=== PATIENT | female | born 1960 | race Caucasian/White ===

== ENCOUNTER 2016-09-26 01:24 | Inpatient (IN) | payer OTHER ==
[2016-09-26] VITALS (25 sets, daily range): BP systolic 68–117; BP diastolic 41–75
[~2016-09-26] VITALS: Ht 154.9 cm; Wt 52.2 kg
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
--- NOTE | ~2016-09-26 | HC ---
[facility] [place] [address] CONSULTATION Name: TRINITY CABALLERO Room #: 430-P ADM IN M.R.#: [id number] Admission: 09/26/16 Attend Phys: Giuseppe Waldron MD Discharge: Date of : 64 Report #: [id number] THIS REPORT FOR: //name// CC: Giuseppe Aaron DATE OF SERVICE: 09/26/2016 ATTENDING PHYSICIAN: Dr. Pittman. REASON FOR CONSULTATION: Recurrent hypokalemia. HISTORY OF PRESENT ILLNESS: The patient is extremely well known to our service, has had multiple recurrent hospitalizations to multiple hospitals for recurrent electrolyte abnormalities. She has multiple abnormalities including eating disorder with probable bulimia, surreptitious diuretic usage, diuretic abuse, frequent nausea and vomiting, and psychiatric disorder. She was admitted 3 weeks ago at [facility] with similar problems, now admitted again here with similar problems including severe hypokalemia. She has chronic kidney disease, thought due to the recurrent and severe hypokalemia and has again had multiple admissions. PAST MEDICAL HISTORY: She has also had a previous cholecystectomy; chronic borderline hypotension, on midodrine. HOME MEDICATIONS: As listed include diazepam 5 mg daily, Lomotil, estradiol 1 mg daily, Prozac 10 mg daily, Linzess 145 mcg daily, melatonin 3 mg daily, midodrine 5 mg t.i.d., Protonix 40 mg daily, potassium 20 mEq t.i.d., trazodone 50 mg daily and vitamin D. FAMILY HISTORY: Please see old charts. REVIEW OF SYSTEMS: GENERAL: She feels poorly. EYES: Her vision is okay. ENT: Hearing okay, swallows okay. No mouth sores or ulcers. ENDOCRINE: No diabetes. She has had some history of thyroid disease, was on thyroid replacement one time apparently, has not been on that recently. RESPIRATORY: No shortness of breath. CARDIAC: She has had no arrhythmias despite the severe electrolyte abnormalities, no coronary artery disease or chest pain. GASTROINTESTINAL: She has had the frequent episodes of nausea, vomiting, diarrhea, probable bulimia as well. GENITOURINARY: Reasonably good urinary stream. NEUROLOGIC: No seizure, syncope or stroke. She is weak. PSYCHIATRIC: She has very complex psychiatric disorder. There may be some [facility] [address] [place] [address] CONSULTATION Name: TRINITY CABALLERO Room #: 430-P [facility] IN .R.#: [id number] Admission: 09/26/16 Attend Phys: Giuseppe Waldron MD Discharge: Date of : 64 Report #: [id number] opiate addiction as well, which has also circumvented. PHYSICAL EXAMINATION: GENERAL: This is a chronically ill-appearing patient. SKIN: Poor turgor. SKELETAL: Extremely thin and cachectic. HEENT: Extraocular movements are full. Vision intact. Her dentition is poor and suggestive of her bulimic condition. NECK: Supple. CHEST: Clear. HEART: Regular. ABDOMEN: Mildly tender. EXTREMITIES: No edema. NEUROLOGIC: Grossly intact. LABORATORY DATA: The hemoglobin is 12.4. Sodium 129, potassium 1.4, chloride 86, bicarbonate 23, creatinine 2.1, BUN 42. ASSESSMENT AND PLAN: 1. Chronic kidney disease. This is hypokalemic nephropathy. She has had recurrent multiple bouts of hypokalemia which are multifactorial. 2. Hypokalemia. She has an eating disorder, suspected bulimia, frequent nausea, vomiting, frequent diarrhea. She has a history of documented diuretic abuse, surreptitious diuretic usage, laxative abuse and usage, all contributing to her chronic electrolyte problems. 3. Hypothyroidism, this will need replacement. 4. Severe psychiatric disorder. <ELECTRONICALLY SIGNED> By: Alex Keenan MD 09/30/16 1012 [id number] Rojas Lagos MD /nt
--- NOTE | ~2016-09-26 | EKG ---
[address] [place] [address] ELECTROCARDIOGRAM REPORT Name: TRINITY CABALLERO Room #: 236-P ADM IN M.R.#: [id number] Admission: 09/26/16 Attend Phys: Giuseppe Waldron MD Discharge: Date of : 64 Report #: [id number] THIS REPORT FOR: //name// [facility] ED Test Date: 2016-09-26 Test Time: 01:43:11 Pat Name: TRINITY CABALLERO Department: Room: 236 Gender: F Rib Trim Separator: abdifatah : 1960 Requested By: Yaneli Watson Order Number: [id number] MD: Miguel Hernandez Measurements Intervals [place] Rate: 92 P: 239 DE: 201 QRS: 2 QRSD: 93 T: 88 QT: 424 QTc: 525 Interpretive Statements Sinus rhythm Borderline prolonged DE interval Repol abnrm suggests ischemia, anterolateral Prolonged QT interval Compared to ECG 04/06/2016 10:55:19 Ectopic atrial rhythm now present Early repolarization now present Possible ischemia now present Prolonged QT interval now present Sinus rhythm no longer present Electronically Signed On 09-26-2016 20:42:21 CDT by Miguel Hernandez [email or web address] <ELECTRONICALLY SIGNED> By: Miguel Hernandez MD 09/26/16 2042 2 014 Miguel Hernandez MD /EPI
[~2016-09-26 01:24] MED LIST: ACETAMINOP160 MG/12 PO; AMBIEN 5 MG TABL5 M1 PO; CEFTIN500 MG PO; COLACE100 MG PO; CYCLOBENZAPRINE5 MG PO; ESTRADIOL 1 MG T1 M1 PO; FLEXERIL PO; HYDROCODONE-APA1 TA1 PO; K-DUR 20 MEQ T20 MEQ PO; KLOR-CON 1010 MEQ PO; LEVOTHYROXIN0.025 MG PO; MAGOX 400400 MG; MAGOX 400400 MG PO; MIDAMOR 5MG TABL5 M1 PO; MIDODRINE HCL 55 M1 PO; MIRALAX17 GM PO; MOVANTIK25 MG PO; NORCO 10-325 T1 EAC1 PO; NORCO 5-325 TA1 EACH PO; ONDANSETRON HCL4 M2 PO; PERCOCET 10-321 EACH PO; POTASSIUM20 PO; PROZAC20 MG PO; REMERON15 MG PO; SENOKOT-S1 TA1 PO; SEROQUEL 25 MG25 M1 PO; SERTRALINE HCL25 M1 PO; SERTRALINE HCL50 MG PO; TRAMADOL 50 MG50 MG PO; TRAZODONE HCL100 MG PO; TYLENOL325 MG PO; VALIUM5 MG PO; VICODIN 5-3001 EACH PO; VITAMIN D 5050000 I1 PO; VITAMIN D1000 UNI1 PO
[2016-09-26 01:44] LABS: ABSOLUTE NEUTROPHILS 14.6 thou/uL (1.4-8.2); BASOPHILS 1.2 % (0.0-2.0); EOSINOPHILS 0.6 % (0.0-3.0); HEMATOCRIT 36.4 % (37.0-47.0); HEMOGLOBIN 12.4 gm/dL (12.0-15.0); LYMPHOCYTES 12.1 % (24.0-44.0); MCH 26.7 pg (26.0-34.0); MCV 78.5 fL (80.0-100.0); MONOCYTES 6.7 % (1.0-8.0); PLATELET COUNT 639 thou/uL (150-400); POLYS 79.4 % (36.0-66.0); RBC 4.63 mil/uL (4.20-5.00); RDW 19.7 % (10.5-14.5); WBC 18.4 thou/uL (4.0-11.0)
[2016-09-26 01:59] LABS: ANION GAP 20 mmol/L (7-16); BUN 42 mg/dL (7-18); CALCIUM 9.5 mg/dL (8.5-10.1); CHLORIDE 86 mmol/L (98-107); CO2 23 mmol/L (21-32); CREATININE 2.1 mg/dL (0.6-1.0); GLUCOSE 139 mg/dL (74-106); SODIUM 129 mmol/L (136-145); TROPONIN-I < 0.04 ng/mL (<0.04-0.07)
[2016-09-26 02:18] LABS: MANUAL DIFF NO; POTASSIUM 1.4 mmol/L (3.5-5.1)
[2016-09-26 02:36] LABS: URINE BILIRUBIN NEGATIVE (Negative); URINE BLOOD 1+ (Negative); URINE GLUCOSE-RANDOM* NEGATIVE (Negative); URINE KETONES NEGATIVE (Negative); URINE NITRITE NEGATIVE (Negative); URINE PROTEIN (DIPSTICK) 1+ (Negative); URINE UROBILINOGEN 0.2 E.U./dl (0.2-1.0)
[2016-09-26 02:47] LABS: URINE COLOR COLORLESS
[2016-09-26 02:56] LABS: CASTS None Seen /LPF (None Seen); CRYSTALS None Seen /LPF (None Seen); SQUAMOUS 4-10 Moderate /LPF (0-3); URINE RBC 3-10 Few /HPF (0-2); URINE WBC 0-5 Rare /HPF (0-5)
[2016-09-26 02:57] LABS: BACTERIA 1-9 Few /HPF (None Seen)
[2016-09-26] MEDS ORDERED: VALIUM5 MG PO (05:32)
[2016-09-26] MEDS ORDERED: TRAZODONE HCL50 MG PO (05:33)
[2016-09-26] MEDS ORDERED: PROTONIX40 M1 PO (05:34)
[2016-09-26] MEDS ORDERED: VITAMIN D250000 UNIT PO (05:35)
[2016-09-26] MEDS ORDERED: MIDODRINE HCL 55 M1 PO (05:36)
[2016-09-26] MEDS ORDERED: OXYCODONE HCL15 MG PO (05:36)
[2016-09-26] MEDS ORDERED: MELATONIN3 MG PO (05:37)
[2016-09-26] MEDS ORDERED: PROZAC10 M1 PO (05:38)
[2016-09-26] MEDS ORDERED: LINZESS145 MCG PO (05:38)
[2016-09-26] MEDS ORDERED: IRON325 PO (05:39)
[2016-09-26] MEDS ORDERED: LOMOTIL TABLET1 EACH PO (05:43)
[2016-09-26 11:47] LABS: CALCIUM 8.4 mg/dL (8.5-10.1); CREATININE 1.8 mg/dL (0.6-1.0)
[2016-09-26 11:53] LABS: POTASSIUM 2.2 mmol/L (3.5-5.1)
[2016-09-26 16:39] LABS: ALBUMIN 3.2 g/dL (3.4-5.0); CALCIUM 8.3 mg/dL (8.5-10.1); PHOSPHORUS 4.4 mg/dL (2.5-4.9)
[2016-09-26 16:42] LABS: POTASSIUM 2.1 mmol/L (3.5-5.1)
[2016-09-27] VITALS (21 sets, daily range): BP systolic 66–108; BP diastolic 39–75
[2016-09-27 07:57] LABS: HEMATOCRIT 26.1 % (37.0-47.0); MCHC 32.7 g/dL (28.0-37.0); MCV 82.5 fL (80.0-100.0); RBC 3.16 mil/uL (4.20-5.00); RDW 20.4 % (10.5-14.5); WBC 6.5 thou/uL (4.0-11.0)
[2016-09-27 08:01] LABS: HEMOGLOBIN 8.5 gm/dL (12.0-15.0)
[2016-09-27 08:10] LABS: ALBUMIN 2.7 g/dL (3.4-5.0); CALCIUM 8.2 mg/dL (8.5-10.1); CREATININE 1.7 mg/dL (0.6-1.0); PHOSPHORUS 3.3 mg/dL (2.5-4.9); POTASSIUM 3.5 mmol/L (3.5-5.1)
[2016-09-28 04:30] VITALS: BP 74/39
[2016-09-28 06:10] LABS: ALBUMIN 2.6 g/dL (3.4-5.0); CALCIUM 7.9 mg/dL (8.5-10.1); CREATININE 1.5 mg/dL (0.6-1.0); MAGNESIUM 2.1 mg/dL (1.8-2.4); POTASSIUM 3.8 mmol/L (3.5-5.1)
[2016-09-28 07:53] VITALS: BP 72/35
[2016-09-28 15:11] VITALS: BP 91/50
[2016-09-28 20:00] VITALS: BP 90/46
[2016-09-29 04:00] VITALS: BP 73/42
[2016-09-29 05:07] LABS: ALBUMIN 2.5 g/dL (3.4-5.0); CALCIUM 7.9 mg/dL (8.5-10.1); CREATININE 1.4 mg/dL (0.6-1.0); PHOSPHORUS 2.7 mg/dL (2.5-4.9); POTASSIUM 4.1 mmol/L (3.5-5.1)
[2016-09-29 07:14] VITALS: BP 86/48
[2016-09-29 12:30] VITALS: BP 82/30
[2016-09-29 15:29] VITALS: BP 97/43
[2016-09-29 16:42] VITALS: BP 103/37
[2016-09-29 20:00] VITALS: BP 101/46
[2016-09-30 04:00] VITALS: BP 99/53
[2016-09-30 08:35] VITALS: BP 108/48
[2016-09-30 09:00] VITALS: BP 108/48
[2016-09-30 15:45] VITALS: BP 95/46
[2016-09-30 20:00] VITALS: BP 121/60
[2016-10-01 04:58] LABS: ALBUMIN 2.5 g/dL (3.4-5.0); CALCIUM 8.2 mg/dL (8.5-10.1); CREATININE 1.2 mg/dL (0.6-1.0); MAGNESIUM 1.9 mg/dL (1.8-2.4); PHOSPHORUS 2.2 mg/dL (2.5-4.9); POTASSIUM 4.3 mmol/L (3.5-5.1)
[2016-10-01 05:06] VITALS: BP 112/57
[2016-10-01 07:34] VITALS: BP 95/56
[2016-10-01] MEDS ORDERED: MIDAMOR 5MG TABL5 M1 PO (10:01)
[2016-10-01] MEDS ORDERED: PERCOCET 10-321 EACH PO (10:36)
[2016-10-01 10:58] VITALS: BP 95/56
== END 2016-10-01 16:00 | disposition home or self-care (01) | DRG 682 ==
LOC: ER 01:24 → 4E 02:44 → EROBS 02:44 → 3N 02:44 → ICU 11:04 → 4E 09-27 10:19
PROVIDERS: Emergency Medicine; Internal Medicine; Internal Medicine Nephrology; Nurse Practitioner Acute Care
DX: N17.0 Acute kidney failure with tubular necrosis (principal); E43 Unspecified severe protein-calorie malnutrition; F50.2 Bulimia nervosa; E87.1 Hypo-osmolality and hyponatremia; E87.6 Hypokalemia; N18.6 End stage renal disease; G89.29 Other chronic pain; D72.829 Elevated white blood cell count, unspecified; F29 Unspecified psychosis not due to a substance or known physiological condition; E03.9 Hypothyroidism, unspecified; I95.89 Other hypotension; F50.81 Binge eating disorder; Z68.21 Body mass index [BMI] 21.0-21.9, adult; Z87.81 Personal history of (healed) traumatic fracture; Z90.710 Acquired absence of both cervix and uterus; Z90.49 Acquired absence of other specified parts of digestive tract
CPT/HCPCS: 10078; 10183

== ENCOUNTER 2016-10-08 22:25 | Inpatient (IN) | payer OTHER ==
[~2016-10-08] VITALS: Ht 152.4 cm; Wt 50.8 kg
--- NOTE | ~2016-10-08 | EKG ---
[place] [address] [facility] [place] [address] ELECTROCARDIOGRAM REPORT Name: CABALLEROTRINITY Chico Room #: 464-P ADM IN M.R.#: [id number] Admission: 10/09/16 Attend Phys: Sanjeev Pittman Discharge: Date of : 64 Report #: [id number] THIS REPORT FOR: //name// [facility] ED Test Date: 2016-10-08 Test Time: 22:34:35 Pat Name: TRINITY CABALLERO Department: Room: 464 Gender: F College Dean: [id number] : 1960 Requested By: Brooke Alfonso Order Number: [id number] MD: Zohaib Delatorre Measurements Intervals [place] Rate: 75 P: 0 TN: 128 QRS: 33 QRSD: 86 T: 268 QT: 460 QTc: 514 Interpretive Statements Sinus rhythm Multiple ventricular premature complexes LAE, consider biatrial enlargement Nonspecific repol abnormality, diffuse leads Prolonged QT interval Compared to ECG 09/26/2016 01:43:11 Ventricular premature complex(es) now present Electronically Signed On 10-09-2016 8:40:02 CDT by Zohaib Delatorre [email or web address] <ELECTRONICALLY SIGNED> By: Zohaib Delatorre MD, [facility] 10/09/16 0840 2234 2234 Zohaib Delatorre MD, [facility] /EPI
--- NOTE | ~2016-10-08 | HC ---
[facility] [place] [address] CONSULTATION Name: TRINITY CABALLERO Room #: 464-P [facility] IN M.R.#: [id number] Admission: 10/09/16 Attend Phys: Sanjeev Pittman Discharge: 10/12/16 Date of : 64 Report #: [id number] THIS REPORT FOR: //name// CC: Sanjeev Aaron DATE OF SERVICE: 10/09/2016 REASON FOR CONSULTATION: Recurrent hypokalemia in this known diuretic/laxative abusing female. HISTORY OF PRESENT ILLNESS: The patient is well known to us. [facility]. She has been found on diuretics screen to have the presence of thiazide diuretics in her system on multiple occasions when she denied ingestion of these substances. She responds slowly, but readily to appropriate supplementation and rehydration. On several occasions, she has acknowledged misuse of both diuretics and laxatives, though she customarily denies their use when laboratory resting reveals otherwise. She has undergone repeated psychiatric evaluation for her eating/image disorder. The patient was admitted on this occasion with profound hypokalemia of 1.4. She has received initial supplementation, remains low and renal consultation is requested. The patient once again denies the use of any diuretics or laxatives at this time, though she did acknowledge them at the time of her most recent hospitalization in early September of this year. PAST MEDICAL HISTORY: Remarkable for psychiatric difficulties as described above. She has undergone previous cholecystectomy. MEDICATIONS: On admission include diazepam, estradiol, Prozac, Linzess, melatonin, midodrine, Protonix, potassium, trazodone, and amiloride. FAMILY HISTORY: Negative for renal disease. REVIEW OF SYSTEMS: Remarkable for weakness and lethargy. She denies fevers, chills, sweats or other constitutional complaints. She denies shortness of breath, productive cough, hemoptysis, chest pain, palpitations, nausea, vomiting, diarrhea, or constipation. PHYSICAL EXAMINATION: GENERAL: Reveals a chronically ill, debilitated woman, in no acute distress. VITAL SIGNS: Blood pressure 89/56, pulse 61, and temperature 97.5. SKIN: Warm and dry. There is diminished turgor noted. Mucous membranes are dry. HEENT: The head is normocephalic and atraumatic. The teeth are in poor repair [address] [address] CONSULTATION Name: ADATRINITY K Room #: 464-P [facility] IN ..#: [id number] Admission: 10/09/16 Attend Phys: Sanjeev Pittman Discharge: 10/12/16 Date of : 64 Report #: [id number] with the appearance of a bulimic patient. NECK: Supple. LUNGS: Perkins are grossly clear. CARDIAC: Reveals a regular rate and rhythm without rub. ABDOMEN: Soft and nontender, without palpable mass or organomegaly. NEUROLOGIC: Reveals the patient to be alert and cooperative with a nonfocal exam. LABORATORY STUDIES: Available at the time of consultation include sodium 138, potassium 2.2, chloride 101, CO2 of27, BUN 35, creatinine 1.6, and glucose 80. ASSESSMENT: 1. Profound hypokalemia in this diuretic abusing female. once again undergoing oral and intravenous supplementation as appropriate. 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 2. Dehydration. 3. Hypomagnesemia. 4. Psychiatric disorder. I believe in the strongest possible terms the patient is a candidate for inpatient psychiatric evaluation and treatment. She has repeated life threatening self- destructive behavioral disorder that needs intervention in the strongest possible terms. She has repeatedly failed to keep outpatient renal or psychiatric appointments. She cannot be trusted to provide good medical followup for herself. Please see orders. <ELECTRONICALLY SIGNED> By: Alex Keenan MD 10/14/16 0641 [id number] 1654 Alex Keenan MD /nt
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
[~2016-10-08 22:25] MED LIST changes: +IRON325 PO; +LINZESS145 MCG PO; +LOMOTIL TABLET1 EACH PO; +MELATONIN3 MG PO; +OXYCODONE HCL15 MG PO; +PROTONIX40 M1 PO; +PROZAC10 M1 PO; +TRAZODONE HCL50 MG PO; +VITAMIN D250000 UNIT PO
[2016-10-09] VITALS (9 sets, daily range): BP systolic 70–119; BP diastolic 38–72
[2016-10-09 01:11] LABS: ABSOLUTE NEUTROPHILS 5.1 thou/uL (1.4-8.2); BASOPHILS 0.3 % (0.0-2.0); EOSINOPHILS 1.8 % (0.0-3.0); HEMATOCRIT 37.2 % (37.0-47.0); HEMOGLOBIN 12.4 gm/dL (12.0-15.0); LYMPHOCYTES 27.2 % (24.0-44.0); MCH 27.2 pg (26.0-34.0); MCHC 33.2 g/dL (28.0-37.0); PLATELET COUNT 556 thou/uL (150-400); POLYS 58.7 % (36.0-66.0); RBC 4.53 mil/uL (4.20-5.00); RDW 22.2 % (10.5-14.5); WBC 8.7 thou/uL (4.0-11.0)
[2016-10-09 01:13] LABS: MANUAL DIFF NO
[2016-10-09 01:56] LABS: CALCIUM 9.9 mg/dL (8.5-10.1); MAGNESIUM 3.2 mg/dL (1.8-2.4)
[2016-10-09 01:57] LABS: POTASSIUM 1.4 mmol/L (3.5-5.1)
[2016-10-09 07:39] LABS: CALCIUM 9.1 mg/dL (8.5-10.1); CREATININE 1.8 mg/dL (0.6-1.0)
[2016-10-09 07:41] LABS: POTASSIUM 1.7 mmol/L (3.5-5.1)
[2016-10-10 00:10] VITALS: BP 97/52
[2016-10-10 01:42] VITALS: BP 101/44
[2016-10-10 04:00] VITALS: BP 86/53
[2016-10-10 06:40] LABS: ALBUMIN 3.1 g/dL (3.4-5.0); CALCIUM 8.2 mg/dL (8.5-10.1); CREATININE 1.6 mg/dL (0.6-1.0); MAGNESIUM 2.9 mg/dL (1.8-2.4); PHOSPHORUS 3.4 mg/dL (2.5-4.9)
[2016-10-10 06:48] LABS: POTASSIUM 2.2 mmol/L (3.5-5.1)
[2016-10-10 10:02] VITALS: BP 89/56
[2016-10-10 12:20] LABS: URINE POTASSIUM-RANDOM* 63.5 mmol/L
[2016-10-10 12:54] VITALS: BP 72/47
[2016-10-10 15:38] LABS: CREATININE 1.5 mg/dL (0.6-1.0)
[2016-10-10 15:40] LABS: POTASSIUM 2.7 mmol/L (3.5-5.1)
[2016-10-10 20:16] VITALS: BP 115/66
[2016-10-11] VITALS (7 sets, daily range): BP systolic 75–108; BP diastolic 38–62
[2016-10-11 04:50] LABS: CALCIUM 8.2 mg/dL (8.5-10.1); CREATININE 1.6 mg/dL (0.6-1.0); MAGNESIUM 2.1 mg/dL (1.8-2.4); PHOSPHORUS 2.2 mg/dL (2.5-4.9); POTASSIUM 3.2 mmol/L (3.5-5.1)
[2016-10-12 03:19] VITALS: BP 107/65
[2016-10-12 04:09] LABS: ALBUMIN 2.6 g/dL (3.4-5.0); CREATININE 1.2 mg/dL (0.6-1.0); MAGNESIUM 1.9 mg/dL (1.8-2.4); PHOSPHORUS 1.8 mg/dL (2.5-4.9); POTASSIUM 3.5 mmol/L (3.5-5.1)
[2016-10-12 07:39] VITALS: BP 94/53
[2016-10-12 11:06] VITALS: BP 94/41
[2016-10-12] MEDS ORDERED: K-DUR 20 MEQ T20 MEQ PO (11:12)
[2016-10-12 11:16] VITALS: BP 94/41
== END 2016-10-12 12:08 | disposition home or self-care (01) | DRG 683 ==
LOC: ER 22:25 → EROBS 10-09 02:36 → 4W 10-09 02:36
PROVIDERS: Emergency Medicine; Hospitalist; Internal Medicine Nephrology; Nurse Practitioner Acute Care
DX: N17.9 Acute kidney failure, unspecified (principal); F50.2 Bulimia nervosa; E87.6 Hypokalemia; E86.0 Dehydration; E87.8 Other disorders of electrolyte and fluid balance, not elsewhere classified; F55.2 Abuse of laxatives; E83.42 Hypomagnesemia; F99 Mental disorder, not otherwise specified; N18.6 End stage renal disease; F32.9 Major depressive disorder, single episode, unspecified; I25.10 Atherosclerotic heart disease of native coronary artery without angina pectoris; F19.10 Other psychoactive substance abuse, uncomplicated; N18.9 Chronic kidney disease, unspecified; Z90.49 Acquired absence of other specified parts of digestive tract; Z90.710 Acquired absence of both cervix and uterus; Z87.81 Personal history of (healed) traumatic fracture; Z79.899 Other long term (current) drug therapy; Z80.0 Family history of malignant neoplasm of digestive organs
CPT/HCPCS: 10045

== ENCOUNTER 2016-10-20 15:59 | Inpatient (IN) | payer OTHER ==
[~2016-10-20] VITALS: Ht 154.9 cm; Wt 52.5 kg
--- NOTE | ~2016-10-20 | HC ---
[facility] [place] [address] [place] [address] CONSULTATION Name: TRINITY CABALLERO Room #: 463-P [facility] IN M.R.#: [id number] Admission: 10/20/16 Attend Phys: Jim Godwin MD Discharge: Date of : 64 Report #: [id number] THIS REPORT FOR: //name// CC: Jim Aaron DATE OF SERVICE: 10/21/2016 DATE OF ADMISSION: 10/20/2016 DATE OF CONSULTATION: 10/21/2016 REASON FOR CONSULTATION: Recurrent hypokalemia in this patient with known eating disorder. 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 She also has a significant eating disorder with bulimia. She is receiving ongoing counseling in this regard, but continues to have repeated hospitalizations. She was last discharged from [facility] just 2 weeks ago. Her discharge labs were remarkable for a potassium of 3.5 and creatinine of 1.2 on last determination on 10/12. She presents to the hospital with complaints of nausea and vomiting over the past several days. Her potassium was 1.0 on admission and her serum creatinine was elevated at 2.5. She steadfastly denies any use of diuretics. PAST MEDICAL HISTORY: Remarkable as described above. She has chronic pain syndrome. She has a history of hypertension. She has had previous episodes of pancreatitis. ALLERGIES: She has no known drug allergies. MEDICATIONS: On admission to the hospital reported to include Estrace 1 mg daily, potassium 60 mEq p.o. t.i.d., Zofran 4 mg every 8 hours p.r.n., amiloride 10 mg b.i.d., Percocet 10/325 q. 4 hours p.r.n., melatonin p.r.n. PAST SURGICAL HISTORY: Remarkable for x 2, hysterectomy, cholecystectomy, breast reduction, foot surgery. FAMILY HISTORY: Negative for renal disease. REVIEW OF SYSTEMS: Remarkable as described in the history of present illness. She denies fevers, chills, sweats. She denies diarrhea. PHYSICAL EXAMINATION: GENERAL: Reveals a chronically ill, debilitated, wasted female appearing her [address] [address] CONSULTATION Name: TRINITY CABALLERO Room #: 463-P [facility] IN .R.#: [id number] Admission: 10/20/16 Attend Phys: Jim Godwin MD Discharge: Date of : 64 Report #: [id number] stated age, in no acute distress. VITAL SIGNS: Blood pressure 93/57, temperature 97.6, pulse of 81 and respirations 18. SKIN: Warm and dry. There is no gross clubbing, cyanosis, edema or adenopathy. HEENT: The head is normocephalic and atraumatic. The teeth are in poor repair and have the typical appearance of an eating disorder patient. NECK: Supple. LUNGS: Perkins are clear. CARDIAC: Reveals a regular rate and rhythm without rub. ABDOMEN: Soft and nontender, without palpable mass or organomegaly. NEUROLOGIC: Reveals the patient to be alert and cooperative with a nonfocal exam. DIAGNOSTIC DATA: Available at this time include sodium 128, potassium 2.2, chloride 89, CO2 25, BUN 33, creatinine 2.5, glucose 153. White blood cell count 12,000, hemoglobin 11.1, hematocrit 32.9, platelet count 461,000. Urinalysis reveals clear yellow urine, 1+ protein, 2+ blood. ASSESSMENT AND PLAN: 1. Life threatening recurrent hypokalemia in this patient with known eating disorder/diuretic and laxative abuse. She attributes the current situation to nausea and vomiting with diarrhea, but I doubt this. She adamantly denies ingestion of diuretics. We will once again obtain a urine diuretic screen as we have done on several occasions in the past when she has denied the use and may have been in fact positive. Diuretic abuse is the likely explanation for this problems once again. She needs inpatient psychiatric consultation with aggressive followup management. She is clearly demonstrated repeatedly that she is failing outpatient management. 2. Recurrent hyperkalemic insults and chronic kidney disease. 3. Eating disorder as described. PLAN: She is undergoing vigorous potassium replacement with serial potassium determinations. I estimate her total body potassium deficit in the multi 100 mEq range. Please see orders. <ELECTRONICALLY SIGNED> By: Alex Keenan MD 10/22/16 0617 0908 1046 Alex Keenan MD /nt
--- NOTE | ~2016-10-20 | EKG ---
[address] [place] [address] ELECTROCARDIOGRAM REPORT Name: ADATRINITY Chico Room #: 463-P ADM IN .R.#: [id number] Admission: 10/20/16 Attend Phys: Jim Godwin MD Discharge: Date of : 64 Report #: [id number] THIS REPORT FOR: //name// [facility] ED Test Date: 2016-10-20 Test Time: 16:16:12 Pat Name: TRINITY CABALLERO Department: Room: 463 Gender: F Assistant Teacher Primary: SHIRA : 1960 Requested By: Damon Encinas Order Number: [id number] MD: Zohaib Delatorre Measurements Intervals [place] Rate: 97 P: 3 CA: 56 QRS: 15 QRSD: 96 T: 71 QT: 529 QTc: 672 Interpretive Statements Sinus rhythm Left atrial enlargement Diffuse ST and T wave abnormality Prolonged QT interval Compared to ECG 10/08/2016 22:34:35 ST and T wave abnormality is more pronounced Premature ventricular complexes no longer present Electronically Signed On 10-22-2016 7:47:36 CDT by Zohaib Delatorre [email or web address] <ELECTRONICALLY SIGNED> By: Zohaib Delatorre MD, [facility] 10/22/16 0747 1616 1616 Zohaib Delatorre MD, [facility] /EPI
[2016-10-20 16:08] VITALS: BP 118/73
[2016-10-20 16:46] LABS: ABSOLUTE NEUTROPHILS 15.2 thou/uL (1.4-8.2); BASOPHILS 0.8 % (0.0-2.0); EOSINOPHILS 0.5 % (0.0-3.0); HEMATOCRIT 40.2 % (37.0-47.0); HEMOGLOBIN 13.7 gm/dL (12.0-15.0); LYMPHOCYTES 10.2 % (24.0-44.0); MANUAL DIFF NO; MCH 26.7 pg (26.0-34.0); MCHC 34.1 g/dL (28.0-37.0); MCV 78.4 fL (80.0-100.0); MONOCYTES 8.2 % (1.0-8.0); PLATELET COUNT 633 thou/uL (150-400); POLYS 80.3 % (36.0-66.0); RBC 5.14 mil/uL (4.20-5.00); RDW 20.8 % (10.5-14.5); WBC 18.9 thou/uL (4.0-11.0)
[2016-10-20 17:01] LABS: ALBUMIN 4.7 g/dL (3.4-5.0); ALKALINE PHOSPHATASE 183 U/L (46-116); ANION GAP 12 mmol/L (7-16); BUN 36 mg/dL (7-18); CALCIUM 8.7 mg/dL (8.5-10.1); CHLORIDE 80 mmol/L (98-107); CO2 30 mmol/L (21-32); CREATININE 2.4 mg/dL (0.6-1.0); DIRECT BILIRUBIN 0.1 mg/dL (<0.1-0.3); GLUCOSE 148 mg/dL (74-106); MAGNESIUM 2.6 mg/dL (1.8-2.4); SGOT 42 U/L (15-37); SGPT 38 U/L (30-65); SODIUM 122 mmol/L (136-145); TOTAL BILIRUBIN 0.5 mg/dL (<0.1-1.0); TOTAL PROTEIN 9.2 g/dL (6.4-8.2); TROPONIN-I < 0.04 ng/mL (<0.04-0.07)
[2016-10-20 17:27] LABS: URINE BILIRUBIN NEGATIVE (Negative); URINE BLOOD 2+ (Negative); URINE COLOR YELLOW; URINE GLUCOSE-RANDOM* NEGATIVE (Negative); URINE KETONES NEGATIVE (Negative); URINE LEUKOCYTES-REFLEX NEGATIVE (Negative); URINE PROTEIN (DIPSTICK) 1+ (Negative); URINE UROBILINOGEN 0.2 E.U./dl (0.2-1.0)
[2016-10-20 17:33] LABS: CASTS None Seen /LPF (None Seen); CRYSTALS None Seen /LPF (None Seen); SQUAMOUS 0-3 Few /LPF (0-3); URINE RBC 0-2 Rare /HPF (0-2); URINE WBC-REFLEX 0-5 Rare /HPF (0-5)
[2016-10-20 18:33] VITALS: BP 109/72
[2016-10-20 19:48] VITALS: BP 104/64
[2016-10-21] VITALS (7 sets, daily range): BP systolic 73–96; BP diastolic 42–65
[2016-10-21 05:13] LABS: HEMATOCRIT 32.9 % (37.0-47.0); MCH 26.9 pg (26.0-34.0); MCHC 33.8 g/dL (28.0-37.0); MCV 79.8 fL (80.0-100.0); RBC 4.13 mil/uL (4.20-5.00); RDW 20.7 % (10.5-14.5)
[2016-10-21 05:16] LABS: HEMOGLOBIN 11.1 gm/dL (12.0-15.0)
[2016-10-21 05:25] LABS: CALCIUM 7.7 mg/dL (8.5-10.1); CREATININE 2.5 mg/dL (0.6-1.0)
[2016-10-21 05:38] LABS: POTASSIUM 2.2 mmol/L (3.5-5.1)
[2016-10-21 18:12] LABS: CALCIUM 7.8 mg/dL (8.5-10.1); CREATININE 1.9 mg/dL (0.6-1.0)
[2016-10-21 18:17] LABS: POTASSIUM 2.6 mmol/L (3.5-5.1)
[2016-10-22 03:02] VITALS: BP 80/52
[2016-10-22 04:32] LABS: ALBUMIN 2.8 g/dL (3.4-5.0); CALCIUM 7.5 mg/dL (8.5-10.1); CREATININE 1.7 mg/dL (0.6-1.0)
[2016-10-22 04:34] LABS: POTASSIUM 3.9 mmol/L (3.5-5.1)
[2016-10-22 07:47] VITALS: BP 83/52
[2016-10-22 09:58] VITALS: BP 83/52
[2016-10-22 11:03] VITALS: BP 83/52
[2016-10-22 11:04] VITALS: BP 92/54
== END 2016-10-22 15:31 | disposition home or self-care (01) | DRG 896 ==
LOC: ER 15:59 → 4W 17:47 → EROBS 17:47 → 4W 18:23
PROVIDERS: Hospitalist; Internal Medicine Nephrology; Physician Assistant
DX: F55.2 Abuse of laxatives (principal); N17.0 Acute kidney failure with tubular necrosis; E43 Unspecified severe protein-calorie malnutrition; E87.1 Hypo-osmolality and hyponatremia; E87.6 Hypokalemia; I12.9 Hypertensive chronic kidney disease with stage 1 through stage 4 chronic kidney disease, or unspecified chronic kidney disease; N18.9 Chronic kidney disease, unspecified; R10.9 Unspecified abdominal pain; E87.8 Other disorders of electrolyte and fluid balance, not elsewhere classified; D72.829 Elevated white blood cell count, unspecified; G89.4 Chronic pain syndrome; F50.9 Eating disorder, unspecified; I95.9 Hypotension, unspecified; Z90.49 Acquired absence of other specified parts of digestive tract; Z68.21 Body mass index [BMI] 21.0-21.9, adult; Z90.710 Acquired absence of both cervix and uterus
CPT/HCPCS: 10045

== ENCOUNTER 2016-11-05 16:05 | Inpatient (IN) | payer OTHER ==
[2016-11-05] VITALS (20 sets, daily range): BP systolic 79–109; BP diastolic 55–78
[~2016-11-05] VITALS: Ht 154.9 cm; Wt 54.0 kg
--- NOTE | ~2016-11-05 | EKG ---
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: PERLITA : 1960 Requested By: Brooke Alfonso Order Number: [id number] MD: Miguel Hernandez Measurements Intervals [place] Rate: 91 P: 0 SD: 168 QRS: 36 QRSD: 101 T: 76 QT: 546 QTc: 673 Interpretive Statements Sinus rhythm Left atrial enlargement Repol abnrm, severe global ischemia (LM/MVD) Prolonged QT interval Compared to ECG 10/20/2016 16:16:12 Early repolarization now present Possible ischemia now present Electronically Signed On 11-05-2016 22:10:04 CDT by Miguel Hernandez [email or web address] <ELECTRONICALLY SIGNED> By: Miguel Hernandez MD 11/05/16 2210 19 19 Miguel Hernandez MD /EPI
[2016-11-05 17:21] LABS: HEMATOCRIT 39.6 % (37.0-47.0); HEMOGLOBIN 13.7 gm/dL (12.0-15.0); MANUAL DIFF YES; MCH 27.2 pg (26.0-34.0); MCHC 34.6 g/dL (28.0-37.0); MCV 78.4 fL (80.0-100.0); PLATELET COUNT 458 thou/uL (150-400); RBC 5.05 mil/uL (4.20-5.00); RDW 20.1 % (10.5-14.5); WBC 18.3 thou/uL (4.0-11.0)
[2016-11-05 17:30] LABS: CALCIUM 9.2 mg/dL (8.5-10.1); CREATININE 2.3 mg/dL (0.6-1.0)
[2016-11-05 17:40] LABS: ABSOLUTE NEUTROPHILS 15.6 thou/uL (1.4-8.2); TOTAL CELL COUNT 100
[2016-11-06] VITALS (42 sets, daily range): BP systolic 71–99; BP diastolic 48–73
[2016-11-06 07:55] LABS: HEMATOCRIT 31.9 % (37.0-47.0); MCH 27.6 pg (26.0-34.0); MCHC 34.6 g/dL (28.0-37.0); MCV 79.8 fL (80.0-100.0); RDW 20.1 % (10.5-14.5); WBC 8.2 thou/uL (4.0-11.0)
[2016-11-06 07:59] LABS: CALCIUM 8.4 mg/dL (8.5-10.1); CREATININE 2.3 mg/dL (0.6-1.0)
[2016-11-06 08:03] LABS: POTASSIUM 1.7 mmol/L (3.5-5.1)
[2016-11-07] VITALS (15 sets, daily range): BP systolic 69–103; BP diastolic 48–72
[2016-11-07 05:12] LABS: ALBUMIN 2.7 g/dL (3.4-5.0); CALCIUM 7.5 mg/dL (8.5-10.1); CREATININE 1.6 mg/dL (0.6-1.0); PHOSPHORUS 2.2 mg/dL (2.5-4.9)
[2016-11-07 05:20] LABS: POTASSIUM 3.1 mmol/L (3.5-5.1)
[2016-11-08 03:41] VITALS: BP 102/82
[2016-11-08 08:00] LABS: ALBUMIN 2.8 g/dL (3.4-5.0); CALCIUM 7.9 mg/dL (8.5-10.1); CREATININE 1.3 mg/dL (0.6-1.0); PHOSPHORUS 1.9 mg/dL (2.5-4.9); POTASSIUM 4.1 mmol/L (3.5-5.1)
[2016-11-08 08:55] VITALS: BP 92/58
[2016-11-08 15:20] VITALS: BP 90/54
[2016-11-08 20:10] VITALS: BP 89/57
[2016-11-09 04:10] VITALS: BP 103/66
[2016-11-09 06:04] LABS: ALBUMIN 2.7 g/dL (3.4-5.0); CALCIUM 8.3 mg/dL (8.5-10.1); CREATININE 1.4 mg/dL (0.6-1.0); PHOSPHORUS 2.3 mg/dL (2.5-4.9); POTASSIUM 4.3 mmol/L (3.5-5.1)
[2016-11-09 07:38] VITALS: BP 103/68
[2016-11-09 08:00] VITALS: BP 95/59
[2016-11-09 13:42] VITALS: BP 95/59
[2016-11-09 14:09] VITALS: BP 95/59
== END 2016-11-09 14:00 | disposition home or self-care (01) | DRG 682 ==
LOC: ER 16:05 → EROBS 18:16 → ICU 18:16 → 3N 11-07 16:07
PROVIDERS: Emergency Medicine; Hospitalist; Internal Medicine; Nurse Practitioner Acute Care
DX: N17.9 Acute kidney failure, unspecified (principal); E43 Unspecified severe protein-calorie malnutrition; F50.2 Bulimia nervosa; E87.1 Hypo-osmolality and hyponatremia; E87.6 Hypokalemia; I95.9 Hypotension, unspecified; M54.9 Dorsalgia, unspecified; M25.552 Pain in left hip; M25.551 Pain in right hip; E86.0 Dehydration; N18.9 Chronic kidney disease, unspecified; G89.29 Other chronic pain; Z90.49 Acquired absence of other specified parts of digestive tract; Z90.710 Acquired absence of both cervix and uterus; Z68.22 Body mass index [BMI] 22.0-22.9, adult; Z87.81 Personal history of (healed) traumatic fracture; Z82.49 Family history of ischemic heart disease and other diseases of the circulatory system; Z84.2 Family history of other diseases of the genitourinary system
CPT/HCPCS: 10078; 10096

== ENCOUNTER 2016-12-15 14:08 | Inpatient (IN) | payer OTHER ==
[~2016-12-15] VITALS: Ht 154.9 cm; Wt 47.2 kg
--- NOTE | ~2016-12-15 | EKG ---
[place] [address] [facility] [place] [address] ELECTROCARDIOGRAM REPORT Name: TRINITY CABALLERO Room #: 454-P [facility] IN .R.#: [id number] Admission: 12/15/16 Attend Phys: Jim Godwin MD Discharge: Date of : 64 Report #: [id number] THIS REPORT FOR: //name// [facility] ED Test Date: 2016-12-15 Test Time: 16:36:34 Pat Name: TRINITY CABALLERO Department: Room: [facility] Gender: F Lay Up Operator: [id number] : 1960 Requested By: Susan Seymour Order Number: [id number] MD: Miguel Hernandez Measurements Intervals [place] Rate: 87 P: 17 MO: 292 QRS: 17 QRSD: 93 T: 238 QT: 411 QTc: 495 Interpretive Statements Sinus rhythm Prolonged [place] interval LAE, consider biatrial enlargement Repol abnrm suggests ischemia, diffuse leads Electronically Signed On 12-16-2016 16:41:50 CDT by Miguel Hernandez [email or web address] <ELECTRONICALLY SIGNED> By: Miguel Hernandez MD 12/16/16 1641 35 35 Miguel Hernandez MD /BILL
[2016-12-15 16:05] LABS: URINE BILIRUBIN NEGATIVE (Negative); URINE BLOOD 1+ (Negative); URINE COLOR YELLOW; URINE GLUCOSE-RANDOM* NEGATIVE (Negative); URINE KETONES NEGATIVE (Negative); URINE LEUKOCYTES-REFLEX TRACE (Negative); URINE PROTEIN (DIPSTICK) 1+ (Negative); URINE UROBILINOGEN 0.2 E.U./dl (0.2-1.0)
[2016-12-15 16:05] LABS: HEMATOCRIT 33.5 % (37.0-47.0); HEMOGLOBIN 11.7 gm/dL (12.0-15.0); MCH 28.1 pg (26.0-34.0); MCHC 34.9 g/dL (28.0-37.0); MCV 80.5 fL (80.0-100.0); PLATELET COUNT 459 thou/uL (150-400); RBC 4.16 mil/uL (4.20-5.00); RDW 16.4 % (10.5-14.5); WBC 11.4 thou/uL (4.0-11.0)
[2016-12-15 16:06] LABS: MANUAL DIFF YES
[2016-12-15 16:11] LABS: SQUAMOUS 0-3 Few /LPF (0-3); URINE RBC 0-2 Rare /HPF (0-2); URINE WBC-REFLEX 0-5 Rare /HPF (0-5)
[2016-12-15 16:12] LABS: CASTS None Seen /LPF (None Seen); CRYSTALS None Seen /LPF (None Seen)
[2016-12-15] MEDS ORDERED: POTASSIUM20 PO (16:14)
[2016-12-15 16:17] LABS: CALCIUM 9.8 mg/dL (8.5-10.1)
[2016-12-15 16:23] LABS: ALBUMIN 4.6 g/dL (3.4-5.0); TOTAL BILIRUBIN 0.4 mg/dL (<0.1-1.0); TOTAL PROTEIN 8.9 g/dL (6.4-8.2)
[2016-12-15 16:31] LABS: POTASSIUM 1.3 mmol/L (3.5-5.1)
[2016-12-15 16:35] LABS: ABSOLUTE NEUTROPHILS 8.2 thou/uL (1.4-8.2); ANISOCYTOSIS 1+; TOTAL CELL COUNT 100
[2016-12-15 17:03] LABS: CALCIUM 9.7 mg/dL (8.5-10.1); MAGNESIUM 2.7 mg/dL (1.8-2.4)
[2016-12-15 17:07] VITALS: BP 116/63
[2016-12-15 17:09] LABS: POTASSIUM 1.2 mmol/L (3.5-5.1)
[2016-12-15 17:38] VITALS: BP 116/63
[2016-12-15 17:49] VITALS: BP 122/68
[2016-12-15 19:19] LABS: CALCIUM 8.9 mg/dL (8.5-10.1); CREATININE 1.8 mg/dL (0.6-1.0); MAGNESIUM 2.5 mg/dL (1.8-2.4)
[2016-12-15 19:22] LABS: POTASSIUM 1.2 mmol/L (3.5-5.1)
[2016-12-15 19:26] VITALS: BP 108/63
[2016-12-16] VITALS (7 sets, daily range): BP systolic 82–130; BP diastolic 44–72
[2016-12-16 05:16] LABS: MCH 28.2 pg (26.0-34.0); RBC 3.37 mil/uL (4.20-5.00); RDW 16.2 % (10.5-14.5)
[2016-12-16 05:17] LABS: HEMOGLOBIN 9.5 gm/dL (12.0-15.0)
[2016-12-16 05:35] LABS: CALCIUM 8.4 mg/dL (8.5-10.1); CREATININE 1.8 mg/dL (0.6-1.0)
[2016-12-16 05:37] LABS: POTASSIUM 1.5 mmol/L (3.5-5.1)
[2016-12-17 02:24] LABS: HEMATOCRIT 27.1 % (37.0-47.0); HEMOGLOBIN 8.7 gm/dL (12.0-15.0); MCH 27.4 pg (26.0-34.0); MCHC 32.3 g/dL (28.0-37.0); RBC 3.18 mil/uL (4.20-5.00); RDW 16.1 % (10.5-14.5); WBC 22.3 thou/uL (4.0-11.0)
[2016-12-17 02:26] LABS: CALCIUM 8.4 mg/dL (8.5-10.1); CREATININE 1.8 mg/dL (0.6-1.0)
[2016-12-17 04:59] VITALS: BP 72/43
[2016-12-17 07:20] VITALS: BP 90/46
[2016-12-17 11:17] VITALS: BP 99/49
[2016-12-17 11:45] VITALS: BP 99/49
[2016-12-17 15:07] VITALS: BP 107/46
[2016-12-17 18:59] VITALS: BP 84/51
[2016-12-18 00:06] VITALS: BP 100/53
[2016-12-18 04:33] VITALS: BP 87/52
[2016-12-18 07:11] VITALS: BP 89/55
[2016-12-18 10:47] LABS: HEMATOCRIT 25.7 % (37.0-47.0); HEMOGLOBIN 8.4 gm/dL (12.0-15.0); MCH 27.9 pg (26.0-34.0); MCHC 32.6 g/dL (28.0-37.0); MCV 85.7 fL (80.0-100.0); RDW 16.6 % (10.5-14.5); WBC 14.6 thou/uL (4.0-11.0)
[2016-12-18 10:53] LABS: CALCIUM 8.2 mg/dL (8.5-10.1); CREATININE 1.6 mg/dL (0.6-1.0); POTASSIUM 3.2 mmol/L (3.5-5.1)
[2016-12-18 11:15] VITALS: BP 89/52
[2016-12-18 16:05] VITALS: BP 102/58
[2016-12-18 19:34] VITALS: BP 108/50
[2016-12-19 03:01] VITALS: BP 85/48
[2016-12-19 06:57] LABS: HEMATOCRIT 26.6 % (37.0-47.0); HEMOGLOBIN 8.8 gm/dL (12.0-15.0); MCH 28.7 pg (26.0-34.0); MCV 86.9 fL (80.0-100.0); RBC 3.07 mil/uL (4.20-5.00); RDW 16.6 % (10.5-14.5); WBC 9.7 thou/uL (4.0-11.0)
[2016-12-19 07:04] VITALS: BP 88/51
[2016-12-19 07:08] LABS: CALCIUM 8.5 mg/dL (8.5-10.1); CREATININE 1.5 mg/dL (0.6-1.0); POTASSIUM 3.1 mmol/L (3.5-5.1)
[2016-12-19 11:32] VITALS: BP 84/50
[2016-12-19 16:22] VITALS: BP 86/42
[2016-12-19 19:27] VITALS: BP 94/49
[2016-12-20 04:35] VITALS: BP 101/60
[2016-12-20 07:00] VITALS: BP 94/51
[2016-12-20 11:19] VITALS: BP 126/61
== END 2016-12-20 15:03 | disposition home or self-care (01) | DRG 682 ==
LOC: ER 14:08 → 4W 16:44 → EROBS 16:44 → 4W 17:38
PROVIDERS: Hospitalist; Internal Medicine; Physician Assistant
DX: N17.0 Acute kidney failure with tubular necrosis (principal); E43 Unspecified severe protein-calorie malnutrition; N39.0 Urinary tract infection, site not specified; E87.1 Hypo-osmolality and hyponatremia; Z68.1 Body mass index [BMI] 19.9 or less, adult; E87.6 Hypokalemia; G89.29 Other chronic pain; R10.9 Unspecified abdominal pain; N18.9 Chronic kidney disease, unspecified; I95.9 Hypotension, unspecified; D72.829 Elevated white blood cell count, unspecified; Z79.899 Other long term (current) drug therapy; Z90.710 Acquired absence of both cervix and uterus; Z90.49 Acquired absence of other specified parts of digestive tract; Z82.49 Family history of ischemic heart disease and other diseases of the circulatory system; Z84.1 Family history of disorders of kidney and ureter
CPT/HCPCS: 10045

== ENCOUNTER 2017-01-07 17:46 | Inpatient (IN) | payer OTHER ==
[~2017-01-07] VITALS: Ht 154.9 cm; Wt 52.2 kg
--- NOTE | ~2017-01-07 | HC ---
[facility] [address] [place] [address] CONSULTATION Name: TRINITY CABALLERO Room #: 449-I ADM IN M.R.#: [id number] Admission: 01/07/17 Attend Phys: Sanjeev Pittman Discharge: Date of : 64 Report #: [id number] THIS REPORT FOR: //name// CC: KYLAH Loya REASON FOR CONSULTATION: Hypokalemia. REASON FOR PRESENTATION: Weakness, nausea and vomiting of few days' duration. HISTORY OF PRESENT ILLNESS: This is a 56-year-old with known binge eating disorders, diuretics and laxative abuse and chronic kidney disease. She presented complaining of the usual symptoms of nausea, vomiting and abdominal pain of few days' duration. She also reported weakness, lower extremity pain. She had changed her insurance. I am not seeing her any more in my clinic. She is in the process of getting into a new kidney clinic. She presented to the Emergency Room yesterday and was found to have potassium of 1.2 and was admitted for further evaluation and management. She stated that she has been taking her potassium and amiloride; however, this seems to be a recurrent and persistent pattern of behavior. She was admitted for further evaluation and management and I was consulted to manage her hypokalemia. PAST MEDICAL HISTORY: 1. Binge eating disorder. 2. Status post hysterectomy. 3. Status post cholecystectomy. 4. Breast reduction surgery. 5. Port-A-cath. 6. Recurrent hypokalemia and hypomagnesemia. MEDICATIONS: 1. Midodrine. 2. Amiloride. 3. Potassium. 4. Fluoxetine. 5. Diazepam. 6. Linzess. ALLERGIES: No known drug allergies. SOCIAL HISTORY: Ex-smoker. No drug or alcohol abuse. REVIEW OF SYSTEMS: GENERAL: Significant for weakness and malaise. CARDIOVASCULAR: No chest pain or palpitation. PULMONARY: No cough or hemoptysis. GASTROINTESTINAL: As per the history of present illness. [facility] [address] [place] [address] CONSULTATION Name: TRINITY CABALLERO Room #: 449-I [facility] IN [facility].#: [id number] Admission: 01/07/17 Attend Phys: Sanjeev Pittman Discharge: Date of : 64 Report #: [id number] GENITOURINARY: No frequency, no urgency. MUSCULOSKELETAL: Diffuse myalgias and muscle weakness. SKIN: No rash or ulcerations. NEUROLOGIC: Significant for weakness. PHYSICAL EXAMINATION: GENERAL: She is alert, oriented, emaciated with poor dental hygiene. VITAL SIGNS: Blood pressure 105/58, temperature 37.1. HEAD AND NECK: No jugular venous distention. Poor dental hygiene. CHEST: Clear to auscultation. CARDIOVASCULAR: No rub. ABDOMEN: Soft, nontender. LOWER EXTREMITIES: No edema. LABORATORY DATA: Laboratory values reviewed. Most recent potassium is 1.1. Sodium is 130, creatinine is down to 1.9. Lipase was . Abdominal CT was done and this did not reveal any abnormalities apart from hepatic and renal cysts. ASSESSMENT, IMPRESSION AND PLAN: 1. Severe hypokalemia. 2. Binge eating disorder. 3. Chronic kidney disease. 4. Hyponatremia. 5. Discussed at length with the patient her recurrent electrolyte issues have nothing to do with her kidneys. This is all due to the binge eating disorder. 6. Continue with IV fluid. 7. We will place on continuous potassium supplements. 8. Explained to the patient the dangers of her behavior, including sudden cardiac arrest. She verbalized understanding. <ELECTRONICALLY SIGNED> By: Charity Ng MD 01/10/17 1508 1037 1126 Charity Ng MD /nt
--- NOTE | ~2017-01-07 | EKG ---
[address] [place] [address] ELECTROCARDIOGRAM REPORT Name: ADATRINITY Chico Room #: 449-I ADM IN .R.#: [id number] Admission: 01/07/17 Attend Phys: Lauro Loya MD Discharge: Date of : 64 Report #: [id number] THIS REPORT FOR: //name// [facility] ED Test Date: 2017-01-07 Test Time: 19:13:49 Pat Name: TRINITY CABALLERO Department: Room: [facility] Gender: F Assessment Coordinator: [id number] : 1960 Requested By: Neftaly Christopher Order Number: [id number] MD: Zohaib Delatorre Measurements Intervals [place] Rate: 92 P: 56 KS: 271 QRS: 23 QRSD: 76 T: 233 QT: 411 QTc: 509 Interpretive Statements Sinus rhythm Prolonged [place] interval Repol abnrm suggests ischemia, diffuse leads Prolonged QT interval Compared to ECG 12/15/2016 16:36:34 No significant changes Electronically Signed On 01-08-2017 8:33:38 CDT by Zohaib Delatorre [email or web address] <ELECTRONICALLY SIGNED> By: Zohaib Delatorre MD, [facility] 01/08/17 0833 12 12 Zohaib Delatorre MD, [facility] /EPI
[2017-01-07 17:47] VITALS: BP 105/58
[2017-01-07] MEDS ORDERED: POTASSIUM20 PO (18:14)
[2017-01-07 18:43] LABS: URINE BILIRUBIN NEGATIVE (Negative); URINE BLOOD 1+ (Negative); URINE COLOR YELLOW; URINE GLUCOSE-RANDOM* NEGATIVE (Negative); URINE KETONES NEGATIVE (Negative); URINE LEUKOCYTES-REFLEX NEGATIVE (Negative); URINE PROTEIN (DIPSTICK) 1+ (Negative); URINE SPECIFIC GRAVITY <= 1.005 (1.003-1.035); URINE UROBILINOGEN 0.2 E.U./dl (0.2-1.0)
[2017-01-07 18:44] LABS: EOSINOPHILS 0.8 % (0.0-3.0); HEMATOCRIT 33.5 % (37.0-47.0); HEMOGLOBIN 11.7 gm/dL (12.0-15.0); LYMPHOCYTES 17.8 % (24.0-44.0); MANUAL DIFF NO; MCH 27.8 pg (26.0-34.0); MCHC 34.8 g/dL (28.0-37.0); MONOCYTES 11.6 % (1.0-8.0); PLATELET COUNT 489 thou/uL (150-400); POLYS 68.8 % (36.0-66.0); RBC 4.19 mil/uL (4.20-5.00); RDW 16.7 % (10.5-14.5); WBC 10.2 thou/uL (4.0-11.0)
[2017-01-07 18:49] LABS: ANION GAP 12 mmol/L (7-16); BUN 25 mg/dL (7-18); CALCIUM 9.3 mg/dL (8.5-10.1); CHLORIDE 82 mmol/L (98-107); CO2 30 mmol/L (21-32); GLUCOSE 126 mg/dL (74-106); SODIUM 124 mmol/L (136-145)
[2017-01-07 18:51] LABS: POTASSIUM 1.2 mmol/L (3.5-5.1)
[2017-01-07 18:51] LABS: SQUAMOUS 0-3 Few /LPF (0-3)
[2017-01-07 18:52] LABS: CASTS None Seen /LPF (None Seen); CRYSTALS None Seen /LPF (None Seen); URINE RBC 0-2 Rare /HPF (0-2); URINE WBC-REFLEX 0-5 Rare /HPF (0-5)
[2017-01-07 18:58] LABS: ALBUMIN 4.7 g/dL (3.4-5.0); ALKALINE PHOSPHATASE 143 U/L (46-116); MAGNESIUM 2.2 mg/dL (1.8-2.4); PHOSPHORUS 4.3 mg/dL (2.5-4.9); SGOT 29 U/L (15-37); SGPT 36 U/L (30-65); TOTAL BILIRUBIN 0.5 mg/dL (<0.1-1.0); TOTAL PROTEIN 8.8 g/dL (6.4-8.2); TROPONIN-I < 0.04 ng/mL (<0.04-0.07)
[2017-01-07 19:56] VITALS: BP 94/64
[2017-01-07 20:18] VITALS: BP 97/66
[2017-01-07 21:24] VITALS: BP 107/75
[2017-01-08 04:51] LABS: HEMATOCRIT 32.8 % (37.0-47.0); HEMOGLOBIN 11.1 gm/dL (12.0-15.0); MCH 27.9 pg (26.0-34.0); MCHC 33.9 g/dL (28.0-37.0); MCV 82.2 fL (80.0-100.0); RBC 3.98 mil/uL (4.20-5.00); RDW 16.3 % (10.5-14.5); WBC 6.7 thou/uL (4.0-11.0)
[2017-01-08 05:04] LABS: CALCIUM 8.6 mg/dL (8.5-10.1); CREATININE 1.9 mg/dL (0.6-1.0)
[2017-01-08 05:12] LABS: POTASSIUM 1.1 mmol/L (3.5-5.1)
[2017-01-08 07:50] VITALS: BP 85/54
[2017-01-08 12:12] VITALS: BP 100/55
[2017-01-08 16:27] VITALS: BP 101/56
[2017-01-08 19:15] VITALS: BP 87/55
[2017-01-09] VITALS (7 sets, daily range): BP systolic 76–113; BP diastolic 46–57
[2017-01-09 06:52] LABS: ALBUMIN 3.1 g/dL (3.4-5.0); CALCIUM 8.1 mg/dL (8.5-10.1); CREATININE 1.9 mg/dL (0.6-1.0); PHOSPHORUS 3.4 mg/dL (2.5-4.9)
[2017-01-09 06:54] LABS: POTASSIUM 1.5 mmol/L (3.5-5.1)
[2017-01-10 03:14] VITALS: BP 76/39
[2017-01-10 06:03] LABS: ALBUMIN 2.9 g/dL (3.4-5.0); CALCIUM 8.2 mg/dL (8.5-10.1); CREATININE 1.7 mg/dL (0.6-1.0); PHOSPHORUS 1.8 mg/dL (2.5-4.9)
[2017-01-10 06:09] LABS: POTASSIUM 2.9 mmol/L (3.5-5.1)
[2017-01-10 08:12] VITALS: BP 79/46
[2017-01-10 12:55] VITALS: BP 92/52
[2017-01-10 15:54] VITALS: BP 95/55
[2017-01-10 19:41] VITALS: BP 112/59
[2017-01-11 03:31] VITALS: BP 97/51
[2017-01-11 06:18] LABS: ALBUMIN 3.2 g/dL (3.4-5.0); CALCIUM 8.6 mg/dL (8.5-10.1); CREATININE 1.5 mg/dL (0.6-1.0); PHOSPHORUS 2.3 mg/dL (2.5-4.9)
[2017-01-11 06:20] LABS: POTASSIUM 4.5 mmol/L (3.5-5.1)
[2017-01-11 08:11] VITALS: BP 104/61
[2017-01-11 12:09] VITALS: BP 118/63
[2017-01-11 16:32] VITALS: BP 99/58
[2017-01-11 19:22] VITALS: BP 127/58
[2017-01-12 04:20] VITALS: BP 97/60
[2017-01-12 05:46] LABS: CALCIUM 8.5 mg/dL (8.5-10.1); CREATININE 1.5 mg/dL (0.6-1.0); MAGNESIUM 1.8 mg/dL (1.8-2.4); POTASSIUM 4.9 mmol/L (3.5-5.1)
[2017-01-12 07:48] VITALS: BP 99/60
[2017-01-12 15:55] VITALS: BP 104/63
[2017-01-12 19:00] VITALS: BP 112/63
[2017-01-13 05:40] VITALS: BP 97/54
[2017-01-13] MEDS ORDERED: MIDAMOR 5MG TABL5 M1 PO (11:01)
[2017-01-13] MEDS ORDERED: K-DUR 20 MEQ T20 MEQ PO (11:02)
[2017-01-13 11:19] VITALS: BP 97/54
== END 2017-01-13 15:51 | disposition home or self-care (01) | DRG 640 ==
LOC: ER 17:46 → EROBS 19:37 → 4W 19:37
PROVIDERS: Emergency Medicine; Hospitalist; Internal Medicine Nephrology; Nurse Practitioner Family
DX: E87.6 Hypokalemia (principal); N17.0 Acute kidney failure with tubular necrosis; N18.4 Chronic kidney disease, stage 4 (severe); E87.1 Hypo-osmolality and hyponatremia; F50.81 Binge eating disorder; E03.9 Hypothyroidism, unspecified; F43.10 Post-traumatic stress disorder, unspecified; E86.9 Volume depletion, unspecified; R63.0 Anorexia; I95.9 Hypotension, unspecified; Z90.710 Acquired absence of both cervix and uterus; Z79.899 Other long term (current) drug therapy; Z90.49 Acquired absence of other specified parts of digestive tract; Z87.891 Personal history of nicotine dependence; Z82.49 Family history of ischemic heart disease and other diseases of the circulatory system; Z68.21 Body mass index [BMI] 21.0-21.9, adult; Z87.81 Personal history of (healed) traumatic fracture
CPT/HCPCS: 10045

== ENCOUNTER 2017-12-18 00:42 | Inpatient (IN) | payer OTHER ==
[~2017-12-18] VITALS: Ht 152.4 cm; Wt 63.5 kg
[2017-12-18] VITALS (25 sets, daily range): BP systolic 74–151; BP diastolic 36–131
--- NOTE | ~2017-12-18 | HC ---
[facility] [address] [address] CONSULTATION Name: TRINITY CABALLERO Room #: 242-P ADM IN M.R.#: [id number] Admission: 12/18/17 Attend Phys: Sanjeev Pittman Discharge: Date of : 64 Report #: [id number] THIS REPORT FOR: //name// CC: Julio Muñoz [facility] physician/PCP Rojas Mares DATE OF SERVICE: 12/18/2017 ATTENDING PHYSICIAN: Dr. Pittman. REASON FOR CONSULTATION: Rmilk-sq-fsuwtay kidney disease. HISTORY OF PRESENT ILLNESS: The patient is quite well known to our service, has been seen a multitude of times over many years with recurrent and frequent hospitalizations. She has a known history of eating disorder, anorexia and bulimia, laxative and diuretic abuse, frequent electrolyte abnormalities with known CKD, extremely poor nutrition and psychiatric disorders. She was recently admitted for similar difficulties at [facility], was treated, went home and then a few days ago, started to have bright red blood per rectum, which worsened with worsening abdominal pain. She presented here overnight and was found to have severe lactic acidosis, ileus with NG tube placement yielding 1600 mL of dark bloody fluid and a markedly abnormal CT of the abdomen with severe abdominal pain showing extensive portal venous air, pneumatosis intestinalis involving multiple dilated small bowel loops, mesenteric branching air densities, question of a paraduodenal internal hernia. She was placed in ICU. She has been fluid resuscitated with 5 liters plus at this point. She also was on pressors for hypotension. Initial creatinine was 4.8, which has improved with IV fluids and resuscitation. PAST MEDICAL HISTORY: Again, the eating disorders since she was a young, chronic electrolyte abnormalities, hypokalemia with renal damage. She also has had previous hysterectomy, cholecystectomy, reduction mammoplasty, history of hypothyroidism. Most of the history was then taken from the old charts. The patient has been seen multiple times and she is in distress and in the ICU. FAMILY HISTORY: Negative for renal diseases. SOCIAL HISTORY: She is apparently a former smoker. MEDICATIONS: Home medication list is being compiled. REVIEW OF SYSTEMS: [facility] [address] [place] [address] CONSULTATION Name: TRINITY CABALLERO Room #: 242-P [facility] IN ..#: [id number] Admission: 12/18/17 Attend Phys: Sanjeev Pittman Discharge: Date of : 64 Report #: [id number] GENERAL: She has been feeling very sick. She has been having abdominal pain and some degree of shortness of breath with bloody stools, nausea, vomiting. PHYSICAL EXAMINATION: GENERAL: She is awake and alert. SKIN: Shows somewhat poor turgor. SKELETAL: Shows her to be thin, emaciated appearing. HEENT: Extraocular movements are full and there is no scleral icterus. Hearing and vision are intact. Mucous membranes are dry. NECK: Neck veins are flat. CHEST: Shows diminished breath sounds at the bases in the supine position. HEART: Regular. ABDOMEN: Quiet and extremely tender, slightly distended. EXTREMITIES: Show no edema. LABORATORY DATA: Hemoglobin is 10.3, white count 18.1, 50% bands. Sodium 132, potassium 3.7, chloride 93, bicarbonate 18, BUN 57, creatinine 3.5. AST is 1230, ALT is 804. ASSESSMENT AND PLAN: 1. Septic shock. She has septic shock, apparently originated from an intra-abdominal process, possibly intestinal ischemia or other intra-abdominal catastrophe with pneumatosis intestinalis, portal venous air, extreme tenderness, lactic acidosis, bandemia, etc. Survival from all of this will be problematic. She also has worsening acute renal failure. 2. Acute kidney injury. She has acute and chronic kidney disease. She has hypokalemic nephropathy underlying, now with very low blood pressures and septic shock and we are doing our best with fluid resuscitation and keeping her electrolytes. 3. History of psychiatric and eating disorders. 4. History of hypokalemic nephropathy. By: [id number] Rojas Lagos MD /nt
--- NOTE | ~2017-12-18 | EKG ---
[address] [place] [address] ELECTROCARDIOGRAM REPORT Name: TRINITY CABALLERO Room #: 242-P ADM IN M.R.#: [id number] Admission: 12/18/17 Attend Phys: Sanjeev Pittman Discharge: Date of : 64 Report #: [id number] THIS REPORT FOR: //name// [facility] ED Test Date: 2017-12-18 Test Time: 01:44:44 Pat Name: TRINITY CABALLERO Department: Room: 242 Gender: F Services Program Manager: maged : 1960 Requested By: Esvin Bocanegra Order Number: [id number] MD: Zohaib Delatorre Measurements Intervals [place] Rate: 101 P: 60 CO: 147 QRS: 22 QRSD: 109 T: 47 QT: 416 QTc: 540 Interpretive Statements Sinus tachycardia Minimal ST depression, anterolateral leads Prolonged QT interval Compared to ECG 01/07/2017 19:13:49 No significant change was found Electronically Signed On 12-18-2017 8:41:30 CDT by Zohaib Delatorre [email or web address] <ELECTRONICALLY SIGNED> By: Zohaib Delatorre MD, [facility] 12/18/17 0841 0144 0144 Zohaib Delatorre MD, [facility] /EPI
--- NOTE | ~2017-12-18 | HC ---
[facility] [place] [address] [address] CONSULTATION Name: TRINITY CABALLERO Room #: 242-P [facility] IN ..#: [id number] Admission: 12/18/17 Attend Phys: Sanjeev Pittman Discharge: 12/20/17 Date of : 64 Report #: [id number] THIS REPORT FOR: //name// CC: Julio Muñoz [facility] physician/PCP Rojas Mares DATE OF SERVICE: 12/18/2017 TYPE OF REPORT: Pulmonary consultation. REFERRING PHYSICIAN: Sanjeev Pittman M.D. REASON FOR REFERRAL: Septic shock. HISTORY OF PRESENT ILLNESS: The patient is a 57-year-old white female who presents to the Emergency Room with a 4-day history of abdominal pains and hematochezia. A pulmonary consultation was requested for possible surgery. PAST MEDICAL HISTORY: Complex including history of anorexia, bulimia since the age of 17, severe protein-calorie malnutrition, hypothyroidism, posttraumatic stress disorder and chronic kidney disease. PAST SURGICAL HISTORY: Include x 2, hysterectomy, cholecystectomy, breast reduction surgery, right foot surgery and Port-A-Cath placement. ALLERGIES: None to medications. MEDICATIONS: List reviewed. This includes esterase, amiloride, potassium supplements, Zofran, trazodone, Protonix, midodrine, melatonin, linaclotide, iron sulfate, Lomotil, Valium, OxyContin, Prozac and probiotic. SOCIAL HISTORY: She has never smoked and does not drink alcohol. FAMILY HISTORY: Remarkable for hypertension and renal disease. REVIEW OF SYSTEMS: As mentioned above. She does complain of abdominal pain. She denies any headache, chest pain or hemoptysis. Notable for recent hematochezia. PHYSICAL EXAMINATION: GENERAL: She is awake and alert. There has been moderate distress. VITAL SIGNS: Temperature is 97, pulse is 110, respiratory rate is 25, blood pressure 107/66 mmHg and saturation 100%. [facility] [address] [place] [address] CONSULTATION Name: TRINITY CABALLERO Room #: 242-[facility] IN [facility].#: [id number] Admission: 12/18/17 Attend Phys: Sanjeev Pittman Discharge: 12/20/17 Date of : 64 Report #: [id number] HEENT: Normocephalic and atraumatic. NECK: Supple, without any lymphadenopathy or thyromegaly. CHEST: Breath sounds are fair without any rales or wheezes. CARDIOVASCULAR: Normal S1 and S2. There is no murmur or gallop. There is no JVD. There is no carotid bruit. Pulses are 2+/4+ bilaterally. ABDOMEN: Moderately distended and tender. No masses felt. GENITOURINARY: Deferred. RECTAL: Deferred. EXTREMITIES: There is no edema, cyanosis or clubbing. RADIOLOGICAL DATA: CT abdomen and pelvis revealed findings concerning for bowel ischemia with extensive pneumatosis intestinalis with extensive portal venous gas in the mesentery and liver, bilateral renal cysts are noted. Echocardiogram was grossly unremarkable. LABORATORY DATA: Sodium 128, potassium 2.6, chloride of 84, bicarbonate is 16, BUN is 70 and creatinine is 4.8. WBC 18,100 and hemoglobin 10.7. Hematocrit is normal and 50% bandemia. Troponin 2.3. Albumin 2.2. IMPRESSION: 1. Profound septic shock, suspect due to ischemic bowel. 2. Acute kidney injury/chronic kidney disease. 3. Hypertension. 4. Gastrointestinal bleed due to above. 5. Hypothyroidism. 6. Elevated liver enzymes, likely due to shock liver. 7. History of anorexia/bulimia. RECOMMENDATIONS: Continue supportive care, vasopressors, broad-spectrum antibiotics, electrolyte abnormalities and keep saturation 90%. Surgery had earlier seen the patient. The patient deemed not to be a surgical candidate. Overall, outlook appears to be quite grim. Thank you for this consultation. <ELECTRONICALLY SIGNED> By: Al Fatima MD 12/20/17 1555 1354 2118 Al Fatima MD /nt
--- NOTE | ~2017-12-18 | EKG ---
[place] [address] [address] ELECTROCARDIOGRAM REPORT Name: ADATRINITY [place]ico Room #: 242-P ADM IN M.R.#: [id number] Admission: 12/18/17 Attend Phys: Sanjeev Pittman Discharge: Date of : 64 Report #: [id number] THIS REPORT FOR: //name// [facility] ED Test Date: 2017-12-18 Test Time: 01:14:57 Pat Name: TRINITY CABALLERO Department: Room: 242 Gender: F Test And Balance Engineer: LARON : 1960 Requested By: Esvin Bocanegra Order Number: [id number] MD: Zohaib Delatorre Measurements Intervals [place] Rate: 99 P: 67 CO: 158 QRS: 40 QRSD: 100 T: 58 QT: 406 QTc: 522 Interpretive Statements Sinus rhythm Low voltage, precordial leads Nonspecific ST and T wave abnormality Prolonged QT interval Compared to ECG 01/07/2017 19:13:49 Low QRS voltage now present QT interval has shortened Electronically Signed On 12-18-2017 8:38:51 CDT by Zohaib Delatorre [email or web address] <ELECTRONICALLY SIGNED> By: Zohaib Delatorre MD, [facility] 12/18/17 0838 0114 0114 Zohaib Delatorre MD, [facility] /EPI
--- NOTE | ~2017-12-18 | 2DMMODE ---
[facility] [address] [place] [address] 2 D/M-MODE ECHOCARDIOGRAM Name: ADATRINITY Room #: 242-P ADM IN .R.#: [id number] Admission: 12/18/17 Attend Phys: Sanjeev Guillen Discharge: Date of : 64 Date of Service: 12/18/17 1055 Report #: [id number] THIS REPORT FOR: //name// APPROVED REPORT Study performed: 12/18/2017 09:02:05 EXAM: Comprehensive 2D, Doppler, and color-flow Echocardiogram Patient Location: ICU Room #: 242 Status: routine BSA: 1.60 HR: 108 bpm BP: 107/66 mmHg Rhythm: Tachycardia Other Information Study Quality: Technically DifficultTechnically Limited Indications Sepsis Elevated Troponin 2D Dimensions LVEF(%): 57.52 (>50%) IVSd: 7.56 (7-11mm) LVOT Diam: 21.55 (18-24mm) LVDd: 40.53 mm PWd: 8.96 (7-11mm) Ascending Ao: 29.54 (22-36mm) LVDs: 28.43 (25-40mm) Aortic Root: 29.91 mm So's LVEF: 57.52 % Pulmonary Valve PV Peak Gold.: 1.10 m/s PV Peak Gr.: 4.86 mmHg Left Ventricle The left ventricle is normal size. There is normal left ventricular wall thickness. The left ventricular systolic function is grossly normal. LVEF is 55-60%. Grade I - abnormal relaxation pattern. Right Ventricle The right ventricle is normal size. The right ventricular systolic function is normal. [facility] [address] [place] [address] 2 D/M-MODE ECHOCARDIOGRAM Name: TRINITY CABALLERO Room #: 242-P ADM IN M.R.#: [id number] Admission: 12/18/17 Attend Phys: Sanjeev Guillen Discharge: Date of : 64 Date of Service: 12/18/17 1055 Report #: [id number] [place] The left atrium size is normal. The right atrium size is normal. Aortic Valve The aortic valve is normal in structure. No aortic regurgitation is present. There is no aortic valvular stenosis. Mitral Valve The mitral valve is normal in structure. There is no mitral valve regurgitation noted. No evidence of mitral valve stenosis. Tricuspid Valve The tricuspid valve is normal in structure. There is no tricuspid valve regurgitation noted. Pulmonic Valve The pulmonary valve is normal in structure. There is no pulmonic valvular regurgitation. Great Vessels The aortic root is normal in size. IVC is normal in size and collapses >50% with inspiration. Pericardium There is no pericardial effusion. <Conclusion> Technically difficult study, limited views. The left ventricle is normal size. The left ventricular systolic function is grossly normal. Grade I - abnormal relaxation pattern. The right ventricle is normal size. The left atrium size is normal. There is no aortic valvular stenosis. There is no mitral valve regurgitation noted. <ELECTRONICALLY SIGNED> By: Ricardo Caraballo MD 12/18/17 1055 1055 1055 Ricardo Caraballo MD /INF
[2017-12-18] MEDS ORDERED: PROBIOTIC1 EAC2 (00:58)
[2017-12-18 01:04] LABS: HEMATOCRIT 32.8 % (37.0-47.0); HEMOGLOBIN 10.7 gm/dL (12.0-15.0); MCH 29.6 pg (26.0-34.0); MCHC 32.7 g/dL (28.0-37.0); MCV 90.6 fL (80.0-100.0); PLATELET COUNT 370 thou/uL (150-400); RBC 3.62 mil/uL (4.20-5.00); RDW 22.8 % (10.5-14.5); WBC 18.1 thou/uL (4.0-11.0)
[2017-12-18 01:18] LABS: APTT 37.3 Seconds (24.5-32.8); CALCIUM 6.9 mg/dL (8.5-10.1); CREATININE 4.8 mg/dL (0.6-1.0); INR 1.4; PROTIME 13.6 Seconds (9.3-11.4)
[2017-12-18 01:20] LABS: POTASSIUM 2.6 mmol/L (3.5-5.1); TROPONIN-I 2.35 ng/mL (<0.06)
[2017-12-18] MEDS ORDERED: [UNRECOGNIZED DRUG - OTHER] (01:20)
[2017-12-18 01:27] LABS: ANISOCYTOSIS 2+; ATYPICAL LYMPHS 1 %; NUCLEATED RBCS 1 /100WBC; PLATELET ESTIMATE NORMAL
[2017-12-18 03:39] LABS: HEMATOCRIT 31.1 % (37.0-47.0); HEMOGLOBIN 10.3 gm/dL (12.0-15.0)
[2017-12-18 07:10] LABS: CREATININE 3.5 mg/dL (0.6-1.0); POTASSIUM 3.7 mmol/L (3.5-5.1)
[2017-12-18 07:25] LABS: ALBUMIN 2.5 g/dL (3.4-5.0); TOTAL BILIRUBIN 0.9 mg/dL (<0.1-1.0); TOTAL PROTEIN 4.9 g/dL (6.4-8.2)
[2017-12-18 08:48] LABS: APTT 40.9 Seconds (24.5-32.8); INR 1.7; PROTIME 17.4 Seconds (9.3-11.4)
[2017-12-18 15:03] LABS: ALBUMIN 2.2 g/dL (3.4-5.0); CREATININE 3.3 mg/dL (0.6-1.0); PHOSPHORUS 9.3 mg/dL (2.5-4.9); POTASSIUM 3.7 mmol/L (3.5-5.1)
[2017-12-18 15:04] LABS: HEMATOCRIT 33.2 % (37.0-47.0); HEMOGLOBIN 11.2 gm/dL (12.0-15.0)
[2017-12-19 00:07] LABS: HCO3 7.5 mmol/L (22.0-26.0); PCO2 30.2 mmHg (35.0-45.0); pH 7.015 (7.360-7.450); sO2 97.1 % (92.0-98.0)
[2017-12-19 00:29] LABS: CALCIUM 6.2 mg/dL (8.5-10.1); CREATININE 3.1 mg/dL (0.6-1.0); POTASSIUM 3.6 mmol/L (3.5-5.1)
== END 2017-12-20 01:45 | DRG 853 ==
LOC: ER 00:42 → ICU 03:57 → EROBS 03:57 → ICU 04:32
PROVIDERS: Emergency Medicine; Internal Medicine Nephrology; Internal Medicine Pulmonary Disease; Nurse Practitioner; Nurse Practitioner Family
PROC: 02HV33Z Insertion of Infusion Device into Superior Vena Cava, Percutaneous Approach (ICD-10-PCS; principal; 2017-12-18)
PROC: B4151ZZ Fluoroscopy of Inferior Mesenteric Artery using Low Osmolar Contrast (ICD-10-PCS; principal; 2017-12-18)
PROC: 5A1935Z Respiratory Ventilation, Less than 24 Consecutive Hours (ICD-10-PCS; principal; 2017-12-18)
PROC: 0D9670Z Drainage of Stomach with Drainage Device, Via Natural or Artificial Opening (ICD-10-PCS; principal; 2017-12-18)
PROC: B4101ZZ Fluoroscopy of Abdominal Aorta using Low Osmolar Contrast (ICD-10-PCS; principal; 2017-12-18)
PROC: B4181ZZ Fluoroscopy of Bilateral Renal Arteries using Low Osmolar Contrast (ICD-10-PCS; principal; 2017-12-18)
PROC: 0WJP0ZZ Inspection of Gastrointestinal Tract, Open Approach (ICD-10-PCS; 2017-12-19)
DX: A41.9 Sepsis, unspecified organism (principal); K65.9 Peritonitis, unspecified; R65.21 Severe sepsis with septic shock; E43 Unspecified severe protein-calorie malnutrition; K55.059 Acute (reversible) ischemia of intestine, part and extent unspecified; J18.9 Pneumonia, unspecified organism; K72.00 Acute and subacute hepatic failure without coma; N18.4 Chronic kidney disease, stage 4 (severe); N17.9 Acute kidney failure, unspecified; K92.2 Gastrointestinal hemorrhage, unspecified; E87.1 Hypo-osmolality and hyponatremia; S36.119A Unspecified injury of liver, initial encounter; K55.9 Vascular disorder of intestine, unspecified; D62 Acute posthemorrhagic anemia; E03.9 Hypothyroidism, unspecified; E87.6 Hypokalemia; F43.10 Post-traumatic stress disorder, unspecified; Z60.2 Problems related to living alone; R74.0 Nonspecific elevation of levels of transaminase and lactic acid dehydrogenase [LDH]; Z66 Do not resuscitate; X58.XXXA Exposure to other specified factors, initial encounter; Z90.49 Acquired absence of other specified parts of digestive tract; Z90.710 Acquired absence of both cervix and uterus; Z82.49 Family history of ischemic heart disease and other diseases of the circulatory system; Z84.1 Family history of disorders of kidney and ureter; Z79.899 Other long term (current) drug therapy; Z87.81 Personal history of (healed) traumatic fracture; Z68.27 Body mass index [BMI] 27.0-27.9, adult; Y93.89 Activity, other specified; Y92.89 Other specified places as the place of occurrence of the external cause; Y99.8 Other external cause status
CPT/HCPCS: 10078; 50101; 50386; 50643; 50820; 56527; 56530; 57092; 62110; 62900; 65002; 65020; 65040; 65090